=== PATIENT | female | born 1955 | race Two or more races ===

== ENCOUNTER → 2021-04-22 | Outpatient (CLI) | payer MEDICARE ==
[~2021-04-22] MED LIST: ALEN70TA71 PO; ALPR0.254 PO; ATOR40TA59 PO; BACL20TA PO; CHOL10004 PO; DILT240C2 PO; DOCU-109 PO; HYDR12.575 PO; HYDR12.58 PO; MELO15TA6 PO; NORT10CA PO; OXYC5TAB4 PO; POTA-121 PO; SUCR1TAB PO; TUME1CAP PO; VENL37.5 PO
[2021-04-22 08:59] LABS: BASO % 1 % (0-3); EOS # 0.2 x10^3/uL (0.0-0.7); EOS % 2 % (0-3); HEMATOCRIT 35.3 % (36.0-47.0); LYMPH # 2.4 x10^3/uL (1.0-4.8); LYMPH % 31 % (24-48); MEAN CORPUSCULAR HEMOGLOBIN 31 pg (25-35); MEAN CORPUSCULAR HGB CONC 34 g/dL (31-37); MEAN CORPUSCULAR VOLUME 90 fL (79-100); MONO # 0.8 x10^3/uL (0.0-1.1); MONO % 10 % (0-9); NEUT # 4.4 x10^3/uL (1.8-7.7); NEUT % 57 % (31-73); PLATELET COUNT 175 x10^3/uL (140-400); RED BLOOD COUNT 3.91 x10^6/uL (3.50-5.40); WHITE BLOOD COUNT 7.8 x10^3/uL (4.0-11.0)
--- NOTE | 2021-04-22 08:59 | EKG ---
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
[2021-04-22 09:30] LABS: ALBUMIN 3.5 g/dL (3.4-5.0); ALBUMIN/GLOBULIN RATIO 0.9 (1.0-1.7); CREATININE 0.8 mg/dL (0.6-1.0); GFR 71.5; TOTAL BILIRUBIN 0.3 mg/dL (0.2-1.0); TOTAL PROTEIN 7.4 g/dL (6.4-8.2)
[2021-04-22 09:38] LABS: CALCIUM 8.6 mg/dL (8.5-10.1)
[2021-04-22 09:43] LABS: POTASSIUM 2.8 mmol/L (3.5-5.1)
== END ==
LOC: SURGPAT 08:26
PROVIDERS: ATTEND Neurological Surgery
DX: Z01.818 Encounter for other preprocedural examination (principal); M48.02 Spinal stenosis, cervical region; M54.12 Radiculopathy, cervical region; M54.2 Cervicalgia; Z98.1 Arthrodesis status; Z88.5 Allergy status to narcotic agent
CPT/HCPCS: 36415; 80053; 85025; 87641; 93005

== ENCOUNTER 2021-04-25 07:17 | Inpatient (IN) | payer MEDICARE ==
[2021-04-22 09:07] VITALS: BP 148/74
[~2021-04-25] VITALS: Ht 154.9 cm; Wt 61.7 kg
[2021-04-25] VITALS (10 sets, daily range): BP systolic 126–154; BP diastolic 68–81
[~2021-04-25 07:17] MED LIST changes: +0.9 % SODIUM CHLORIDE 20 ML VIAL. IJ ONE; +BUPIVACAINE-EPI 0.5%-1:200000 MPF 30 ML VIAL. ONE; -DOCU-109 PO; +GELATIN SPONGE SIZE 100. ONE; +HYDROmorphone 2 MG/ML VIAL IVP PRN; +IV RINGERS,LACTATED 1000ML 1,000 ML IV SCH; +LIDOCAINE 2% PF 5 ML VIAL. ONE; +MIDAZOLAM HCL/PF 2 MG/2 ML VIAL. ONE; -OXYC5TAB4 PO; +PHENYLEPHRINE 10 MG/ML VIAL. ONE; -POTA-121 PO; +PROCHLORPERAZINE 10 MG/2 ML VIAL. IVP PRN; +PROPOFOL 10 MG/ML (20ML) VIAL. IV ONE; +REMIFENTANIL 2 MG VIAL. IV ONE; +ROCURONIUM 50 MG/5 ML VIAL. ONE; +SUCCINYLCHOLINE 200 MG/10 ML VIAL. ONE; +THROMBIN TOPICAL 20,000 UNIT SPRAY.SYRN KIT TP ONE; +VANCOMYCIN 1 GM in IV NORMAL SALINE 1000ML BAG 1,000 ML IV ONE; +VANCOMYCIN 1GM IVPB FOR OMNI 250 ML IV PRN; +fentaNYL PF VIAL 100 MCG/2 ML VIAL IVP PRN; +fentaNYL PF VIAL 100 MCG/2 ML VIAL ONE
[2021-04-25] MEDS ORDERED: DEXAMETHASONE SOD PHOS 4 MG/ML VIAL ONE (07:21)
[2021-04-25] MEDS ORDERED: ONDANSETRON PF 4 MG/2 ML VIAL. ONE (07:21)
[2021-04-25] MEDS ORDERED: POTA-121 PO (07:57)
[2021-04-25] MEDS ORDERED: PROPOFOL 50 ML IV ONE ×2 (08:12→08:48)
[2021-04-25] MEDS ORDERED: SEVOFLURANE > 120 MINUTES. IH ONE (08:47)
[2021-04-25] MEDS ORDERED: HYDROmorphone 2 MG/ML VIAL ONE (09:07)
--- NOTE | 2021-04-25 09:09 | PREOP HP ---
DATE OF SERVICE: 04/25/2021 PREOPERATIVE HISTORY AND PHYSICAL HISTORY OF PRESENT ILLNESS: The patient is a pleasant 65-year-old who is having difficulty with neck and right shoulder pain. She says her range of motion is restricted. She has undergone 2 cervical surgeries in the past and did well with those. She has intermittent difficulties with neck pain, but a few months ago, the pain significantly worsened. Heating pad and medications can help her. She takes baclofen and Mobic. She had an anterior cervical fusion from C4 to C7. She rates her pain 8/10. Activity increases her pain. She says her hands can become numb and her middle fingers become numb bilaterally frequently. CURRENT MEDICATIONS: Turmeric, meloxicam, baclofen, nortriptyline, potassium, atorvastatin, hydrochlorothiazide, alprazolam, diltiazem, venlafaxine, vitamin D. PAST MEDICAL HISTORY: Arthritis, headaches, neck pain, hypertension, osteoporosis, psychiatric care, GERD. PAST SURGICAL HISTORY: ACDF C5-6, C6-7 in 2001; hysterectomy in 2004; ACDF C4-5 in 2008; cholecystectomy in 2009; esophageal dilation in 2019. FAMILY HISTORY: Alzheimer's, cancer, diabetes, heart disease, hypertension. SOCIAL HISTORY: Retired, , nonsmoker. Drinks alcohol 1-2 times per year. ALLERGIES: KEFLEX, DARVOCET, WELLBUTRIN AND SHRIMP. PHYSICAL EXAMINATION: GENERAL: Alert, pleasant, in no acute distress. HEENT: Head is normocephalic, atraumatic. SKIN: Warm and dry. NECK: Kbqh-tm-[id number] tenderness with palpation of the posterior cervical region, well-healed incision. MUSCULOSKELETAL: Cervical paraspinal muscle bulk is normal, restricted range of motion of the cervical spine, normal range of motion of the upper extremities bilaterally. EXTREMITIES: No clubbing, cyanosis or edema. NEUROLOGIC: Alert and oriented x 3. Normal recent and remote memory. Strength is 5/5 in the upper and lower extremities. Sensory intact to light touch in the upper and lower extremities. Reflexes were present and symmetric in the upper and lower extremities bilaterally. Normal gait. IMAGING: I reviewed her cervical MRI scan. On that study, there are significant degenerative changes throughout the cervical spine along with postoperative changes from her previous fusion at C4 through C7. At C3-4, she has developed significant central canal stenosis with compression of the spinal cord. There is significant bilateral foraminal narrowing present. ASSESSMENT AND PLAN: Based on the cervical stenosis and her symptoms, I feel that she should undergo an anterior cervical diskectomy and fusion at C3-4. I spoke with her about the surgery and the risk. I spoke with her about the expected postoperative course. She would like to go ahead. We will make the arrangements. PRINCE DR: Clari TID: [id number] BETSY
[2021-04-25] MEDS ORDERED: MAG HYDROX/ALUMINUM HYD/SIMETH 30 ML ORAL.SUSP PO PRN (13:15)
[2021-04-25] MEDS ORDERED: MAGNESIUM HYDROXIDE 2,400 MG/30 ML ORAL.SUSP. PO PRN (13:15)
[2021-04-25] MEDS ORDERED: ALPRAZolam 0.25 MG TABLET PO PRN (13:15)
[2021-04-25] MEDS ORDERED: diphenhydrAMINE HCL 25 MG CAPSULE PO PRN (13:15)
[2021-04-25] MEDS: POTASSIUM CL 20MEQ D5-0.45NACL 1,000 ML IV SCH (13:15)
[2021-04-25] MEDS ORDERED: CALCIUM CARBONATE 500 MG TAB.CHEW PO PRN (13:15)
[2021-04-25] MEDS ORDERED: NALOXONE 0.4 MG/ML VIAL. IV PRN (13:15)
[2021-04-25] MEDS ORDERED: 0.9 % SODIUM CHLORIDE 10 ML DISP.SYRIN. IV PRN (13:15)
[2021-04-25] MEDS ORDERED: PROCHLORPERAZINE 10 MG/2 ML VIAL. ONE (13:29)
[2021-04-25] MEDS ORDERED: MORPHINE SULFATE 2 MG/ML INJ. ONE (13:29)
[2021-04-25] MEDS: MORPHINE SULFATE 2 MG/ML INJ. IVP PRN ×2 (13:34→13:50)
[2021-04-25] MEDS: fentaNYL PF VIAL 100 MCG/2 ML VIAL IVP PRN ×4 (13:49→21:13)
--- NOTE | 2021-04-25 14:30 | NUR ---
Arrive to unit by bed from PACU. Sedated. VS stable. Dressing anterior neck d/i with soft collar. IVF's intact and infusing. O2 at 2l per n/c. JESSI's and TRU's on bilaterally. Side rails up x's 2 with bed alarm on. Call light within reach. Cont. monitor.
--- NOTE | 2021-04-25 16:00 | NUR ---
Awaken to use bathroom. Accident in bed. Ambulated to bathroom with assistance x's 1. Voided. Pull ups put on and gown changed. Return back to bed. 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 C/o sore throat. Took a couple of sips water without difficulty. Cont. monitor.
--- NOTE | 2021-04-25 18:00 | NUR ---
and daughter at bedside. several questions answered regarding the care that Vincent will need. questions answered. want ad clerk remain equal and weal. she does have fine motor skills but are weak bilaterally. vincent remains drowsy but will answer questions
--- NOTE | 2021-04-25 18:11 | NUR ---
assisted to up to the bathroom with an assist one; unsteady gait. family remains at bedside. re-educated on the use of the call light and bed alarm
[2021-04-25] MEDS ORDERED: VANCOMYCIN 1 GM in IV NORMAL SALINE 250ML 250 ML IV SCH (20:30)
[2021-04-25] MEDS ORDERED: ATORVASTATIN CALCIUM 40 MG TABLET. PO SCH (21:00)
[2021-04-25] MEDS: DOCUSATE SODIUM 100 MG CAPSULE. PO SCH (21:00)
[2021-04-25] MEDS ORDERED: NORTRIPTYLINE 10 MG CAPSULE PO SCH (21:00)
[2021-04-26] MEDS: fentaNYL PF VIAL 100 MCG/2 ML VIAL IVP PRN ×3 (00:12→12:49)
[2021-04-26] MEDS: POTASSIUM CL 20MEQ D5-0.45NACL 1,000 ML IV SCH (02:35)
[2021-04-26 03:18] VITALS: BP_SYST 135; BP_SYST 155; BP_DIAS 78; BP_DIAS 81
[2021-04-26 07:00] VITALS: BP 153/84
[2021-04-26] MEDS ORDERED: SUCRALFATE 1 GM TABLET. PO SCH (08:00)
[2021-04-26] MEDS: DOCUSATE SODIUM 100 MG CAPSULE. PO SCH (08:08)
[2021-04-26] MEDS ORDERED: oxyCODONE IR 5 MG TABLET PO PRN (08:30)
[2021-04-26] MEDS ORDERED: POTASSIUM CHLORIDE 20 MEQ TABLET.ER. PO SCH (09:00)
[2021-04-26] MEDS ORDERED: BACLOFEN 10 MG TABLET. PO SCH (09:00)
[2021-04-26] MEDS ORDERED: [UNRECOGNIZED DRUG - OTHER] PO SCH (09:00)
[2021-04-26] MEDS ORDERED: hydroCHLOROthiazide 25 MG TABLET PO SCH (09:00)
[2021-04-26] MEDS ORDERED: VENLAFAXINE XR 37.5 MG CAP.ER.24H. PO SCH (09:00)
[2021-04-26] MEDS ORDERED: hydroCHLOROthiazide 12.5 MG CAPSULE PO SCH (09:00)
[2021-04-26 11:00] VITALS: BP 166/71
[2021-04-26] MEDS ORDERED: OXYC5TAB4 PO (12:12)
[2021-04-26] MEDS ORDERED: DOCU-109 PO (12:12)
--- NOTE | 2021-04-26 12:13 | DISCH ---
DISCHARGE INSTRUCTIONS Condition on Discharge Condition on Discharge: Stable Activity After Discharge Activity Instructions for Disc: Activity as tolerated, Avoid exertion, Prog ressive ambulation Other activity instructions: soft collar for comfort Bathing Instructions: No Tub Bath until see Lifting Instructions after Dis: No heavy lifting, No pulling or pushing, Do not lift >10 pounds Exercise Instruction after Dis: Exercise per therapy, Progress as tolerated Driving Instructions after Dis: Do not drive, No driving for 2 weeks Diet after Discharge Diet after Discharge: GI Soft Liquid Texture: Thin Liquid Wound Incision Care Other wound/incision instructi: May shower 48 hours post op. Remove dressing. Replace if desired. Contacting the after DC Call your doctor for: Concerns you may have Follow-Up Follow Up With: Dr Yeung's nurse in two weeks. [phone] Treatment/Equipment after DC Adaptive Equipment Issued: None ERICA YEUNG MD Apr 26, 2021 12:13
--- NOTE | 2021-04-26 13:47 | PDOC ---
PROGRESS NOTES Date of Service DATE: 04/26/21 TIME: 13:42 Subjective Subjective POD #1 S/p ACDF C3-4 Awake alert, sore, pain well controlled some difficulty swallowing but this is a chronic problem, able to take pills and eat Objective Objective Vital Signs Date Time Temp Pulse Resp B/P (MAP) Pulse Ox O2 Delivery O2 Flow Rate FiO2 04/26/21 12:49 95 Room Air 04/26/21 11:00 97.8 84 18 166/71 (102) 2.0 97.8 Intake and Output 04/26/21 06:59 Intake Total 1330 ml Output Total 20 ml Balance 1310 ml Intake Oral 580 ml IV Total 750 ml Output Estimated Blood Loss 20 ml # Voids 6 Physical Exam General: Alert, Oriented X3, Cooperative, Other (voice clear) Neuro: Normal speech, Strength at 5/5 X4 ext Plan Plan of Care ok to dc home f/u 2 weeks Comment Review of Relevant I have reviewed the following items daisy (where applicable) has been applied. Labs Laboratory Tests Test 04/25/21 07:55 Potassium Level 3.3 mmol/L (3.5-5.1) Medications Current Medications Fentanyl Citrate (Fentanyl 2ml Vial) 25 mcg PRN Q5MIN PRN IVP MILD PAIN 1-3; Start 04/25/21 at 06:00; Stop 04/25/21 at 20:00; Status DC Fentanyl Citrate (Fentanyl 2ml Vial) 50 mcg PRN Q5MIN PRN IVP MODERATE PAIN 4-6 Last administered on 04/25/21at 14:03; Start 04/25/21 at 06:00; Stop 04/25/21 at 20:00; Status DC Morphine Sulfate (Morphine Sulfate) 1 mg PRN Q10MIN PRN IVP SEVERE PAIN 7-10 Last administered on 04/25/21at 13:50; Start 04/25/21 at 06:00; Stop 04/25/21 at 20:00; Status DC Ringer's Solution 1,000 ml @ 30 mls/hr Q24H IV Last administered on 04/25/21at 08:04; Start 04/25/21 at 06:00; Stop 04/25/21 at 17:59; Status DC Hydromorphone HCl (Dilaudid) 0.5 mg PRN Q10MIN PRN IVP SEVERE PAIN 7-10, 2nd CHOICE; Start 04/25/21 at 06:00; Stop 04/25/21 at 20:00; Status DC Prochlorperazine Edisylate (Compazine) 5 mg PACU PRN PRN IVP NAUSEA, MRX1 Last administered on 04/25/21at 13:34; Start 04/25/21 at 06:00; Stop 04/25/21 at 20:00; Status DC Vancomycin HCl 1 gm/Sodium Chloride 1,000 ml @ 1,000 mls/hr 1X ONCE IV Last administered on 04/25/21at 09:55; Start 04/25/21 at 06:00; Stop 04/25/21 at 06:59; Status DC Vancomycin HCl 250 ml @ 250 mls/hr 1X PREOP PRN IV PRIOR TO PROCEDURE Last administered on 04/25/21at 08:48; Start 04/25/21 at 06:00; Stop 04/25/21 at 18:00; Status DC Gelatin (Gelfoam Size 100) 1 each STK-MED ONCE .ROUTE Last administered on 04/25/21at 09:55; Start 04/25/21 at 07:07; Stop 04/25/21 at 07:07; Status DC Bupivacaine HCl/ Epinephrine Bitart (Sensorcain-Epi 0.5%-1:039375 Mpf) 30 ml STK-MED ONCE .ROUTE Last administered on 04/25/21at 09:55; Start 04/25/21 at 07:07; Stop 04/25/21 at 07:07; Status DC Thrombin 20,000 unit STK-MED ONCE TP Last administered on 04/25/21at 09:55; Start 04/25/21 at 07:07; Stop 04/25/21 at 07:07; Status DC Propofol (Diprivan) 200 mg STK-MED ONCE IV ; Start 04/25/21 at 05:28; Stop 04/25/21 at 07:28; Status DC Lidocaine HCl (Lidocaine Pf 2% Vial) 5 ml STK-MED ONCE .ROUTE ; Start 04/25/21 at 05:28; Stop 04/25/21 at 07:28; Status DC Fentanyl Citrate (Fentanyl 2ml Vial) 100 mcg STK-MED ONCE .ROUTE ; Start 04/25/21 at 05:28; Stop 04/25/21 at 07:29; Status DC Succinylcholine Chloride (Anectine) 200 mg STK-MED ONCE .ROUTE ; Start 04/25/21 at 05:28; Stop 04/25/21 at 07:29; Status DC Rocuronium Mica (Zemuron) 50 mg STK-MED ONCE .ROUTE ; Start 04/25/21 at 05:29; Stop 04/25/21 at 07:29; Status DC Midazolam HCl (Versed) 2 mg STK-MED ONCE .ROUTE ; Start 04/25/21 at 05:29; Stop 04/25/21 at 07:29; Status DC Remifentanil HCl (Ultiva) 2 mg STK-MED ONCE IV ; Start 04/25/21 at 05:29; Stop 04/25/21 at 07:29; Status DC Sodium Chloride (SODIUM CHLORIDE 20ml) 20 ml STK-MED ONCE IJ ; Start 04/25/21 at 05:29; Stop 04/25/21 at 07:29; Status DC Phenylephrine HCl (Joseph-Synephrine Inj) 10 mg STK-MED ONCE .ROUTE ; Start 04/25/21 at 05:30; Stop 04/25/21 at 07:30; Status DC Ondansetron HCl (Zofran) 4 mg STK-MED ONCE .ROUTE ; Start 04/25/21 at 07:21; Stop 04/25/21 at 09:21; Status DC Dexamethasone Sodium Phosphate (Decadron) 4 mg STK-MED ONCE .ROUTE ; Start 04/25/21 at 07:21; Stop 04/25/21 at 09:21; Status DC Propofol 50 ml @ As Directed STK-MED ONCE IV ; Start 04/25/21 at 08:12; Stop 04/25/21 at 10:12; Status DC Sevoflurane (Ultane) 90 ml STK-MED ONCE IH ; Start 04/25/21 at 08:47; Stop 04/25/21 at 10:48; Status DC Propofol 50 ml @ As Directed STK-MED ONCE IV ; Start 04/25/21 at 08:48; Stop 04/25/21 at 10:48; Status DC Hydromorphone HCl (Dilaudid) 2 mg STK-MED ONCE .ROUTE ; Start 04/25/21 at 09:07; Stop 04/25/21 at 11:07; Status DC Alprazolam (Xanax) 0.25 mg PRN TID PRN PO ANXIETY / AGITATION; Start 04/25/21 at 13:15 Atorvastatin Calcium (Lipitor) 40 mg QHS PO ; Start 04/25/21 at 21:00 Diltiazem HCl (Cardizem 24hr Cd) 240 mg DAILY PO Last administered on 04/26/21at 08:10; Start 04/26/21 at 09:00 Hydrochlorothiazide (Microzide) 12.5 mg DAILY PO ; Start 04/26/21 at 09:00; Status Cancel Nortriptyline HCl (Pamelor) 10 mg HS PO ; Start 04/25/21 at 21:00 Potassium Chloride (Klor-Con) 20 meq DAILY PO Last administered on 04/26/21at 08:09; Start 04/26/21 at 09:00 Sucralfate (Carafate) 2 gm DAILYAC PO ; Start 04/26/21 at 08:00 Venlafaxine HCl (Effexor Xr) 37.5 mg DAILY PO Last administered on 04/26/21at 08:10; Start 04/26/21 at 09:00 Non-Formulary Medication (Alendronate Sodium ) 1 tab WEEKLY PO ; Start 05/02/21 at 09:00; Status UNV Baclofen (Lioresal) 20 mg DAILY PO Last administered on 04/26/21at 08:08; Start 04/26/21 at 09:00 Hydrochlorothiazide (Hydrodiuril) 25 mg DAILY PO Last administered on 04/26/21at 08:08; Start 04/26/21 at 09:00 Non-Formulary Medication (Tumeric/Ging/ [place]/Oreg/Capryl (Candicidal Capsule)) 1 each DAILY PO ; Start 04/26/21 at 09:00; Status UNV Fentanyl Citrate (Fentanyl 2ml Vial) 50 mcg PRN Q2HR PRN IVP MODERATE TO SEVERE PAIN Last administered on 04/26/21at 12:49; Start 04/25/21 at 13:15 Al Hydroxide/Mg Hydroxide (Mylanta Plus Xs) 30 ml PRN Q3HRS PRN PO HEARTBURN / GAS; Start 04/25/21 at 13:15 Calcium Carbonate/ Glycine (Tums) 500 mg PRN Q3HRS PRN PO INDIGESTION; Start 04/25/21 at 13:15 Diphenhydramine HCl (Benadryl) 25 mg PRN Q6HRS PRN PO ITCHING; Start 04/25/21 at 13:15 Naloxone HCl (Narcan) 0.1 mg PRN Q2MIN PRN IV SEE COMMENTS; Start 04/25/21 at 13:15 Sodium Chloride (Normal Saline Flush) 3 ml QSHIFT PRN IV AFTER MEDS AND BLOOD DRAWS; Start 04/25/21 at 13:15 Potassium Chloride/Dextrose/ Sod Cl 1,000 ml @ 75 mls/hr [id number] IV ; Start 04/25/21 at 13:15 Docusate Sodium (Colace) 100 mg BID PO Last administered on 04/26/21at 08:08; Start 04/25/21 at 21:00 Magnesium Hydroxide (Milk Of Magnesia) 2,400 mg PRN Q12HR PRN PO CONSTIPATION; Start 04/25/21 at 13:15 Vancomycin HCl 1 gm/Sodium Chloride 250 ml @ 166.667 mls/hr 1X IV ; Start 04/25/21 at 20:30 Morphine Sulfate (Morphine Sulfate) 2 mg STK-MED ONCE .ROUTE ; Start 04/25/21 at 13:29; Stop 04/25/21 at 13:29; Status DC Prochlorperazine Edisylate (Compazine) 10 mg STK-MED ONCE .ROUTE ; Start 04/25/21 at 13:29; Stop 04/25/21 at 13:29; Status DC Oxycodone HCl (Roxicodone) 5 mg PRN Q6HRS PRN PO MODERATE TO SEVERE PAIN Last administered on 04/26/21at 09:20; Start 04/26/21 at 08:30 Active Scripts Active Oxycodone Hcl Immed.release (Oxycodone Hcl) 5 Mg Tablet 5 Mg PO PRN Q6HRS PRN Colace (Docusate Sodium) 100 Mg Capsule 100 Mg PO BID Reported Klor-Con M20 (Potassium Chloride) 20 Meq Tab.er.prt 20 Meq PO DAILY Nortriptyline Hcl 10 Mg Capsule 10 Mg PO HS Hydrochlorothiazide Tablet (Hydrochlorothiazide) 12.5 Mg Tablet 25 Mg PO DAILY Hydrochlorothiazide Capsule (Hydrochlorothiazide) 12.5 Mg Capsule 12.5 Mg PO DAILY Baclofen 20 Mg Tablet 1 Tab PO DAILY Candicidal Capsule (Tumeric/Ging/Sylvania/Oreg/Capryl) 1 Each Capsule 1 Each PO DAILY Vitamin D3 (Vitamin D) 25 Mcg Tablet 25 Mcg PO DAILY 1,000 UNITS = 25 MCG Alendronate Sodium 70 Mg Tablet 1 Tab PO WEEKLY Atorvastatin Calcium 40 Mg Tablet 1 Tab PO DAILY Sucralfate 1 Gm Tablet 2 Tab PO DAILY Alprazolam 0.25 Mg Tablet 1 Tab PO TID PRN Effexor Xr (Venlafaxine Hcl) 37.5 Mg Cap.er.24h 1 Cap PO DAILY Cardizem Cd (Diltiazem Hcl) 240 Mg Cap.er.24h 1 Cap PO DAILY Vitals/I & O Vital Sign - Last 24 Hours 04/25/21 04/25/21 04/25/21 04/25/21 13:48 13:49 13:50 14:02 Temp 97.2 97.2 97.2 97.2 Pulse 78 92 Resp 15 15 15 15 B/P (MAP) 150/81 147/69 Pulse Ox 94 97 97 97 O2 Delivery Room Air Room Air Nasal Cannula Room Air Nasal Cannula Nasal Cannula O2 Flow Rate 4 10.0 4.0 4.0 04/25/21 04/25/21 04/25/21 04/25/21 14:03 14:30 14:45 14:47 Temp 98.6 98.6 Pulse 87 87 Resp 15 16 16 B/P (MAP) 138/78 (98) 135/77 (96) Pulse Ox 97 92 94 O2 Delivery Room Air Nasal Cannula Nasal Cannula Nasal Cannula O2 Flow Rate 4.0 2.0 2.0 2.0 04/25/21 04/25/21 04/25/21 04/25/21 15:00 15:15 15:45 16:05 Pulse 85 87 83 80 Resp 14 18 16 16 B/P (MAP) 139/74 (95) 146/77 (100) 143/80 (101) 154/79 (104) Pulse Ox 94 94 O2 Delivery Nasal Cannula Nasal Cannula Nasal Cannula Nasal Cannula O2 Flow Rate 2.0 2.0 2.0 2.0 04/25/21 04/25/21 04/25/21 04/25/21 17:00 18:02 18:52 19:30 Temp 98.6 98.6 Pulse 79 79 84 Resp 18 18 18 18 B/P (MAP) 141/80 (100) 135/75 (95) 126/68 (87) Pulse Ox 93 94 O2 Delivery Nasal Cannula Nasal Cannula Nasal Cannula Nasal Cannula O2 Flow Rate 2.0 2.0 2.0 2.0 04/25/21 04/25/21 04/26/21 04/26/21 20:00 23:22 03:18 07:00 Temp 98.3 98.8 97.6 98.3 98.8 97.6 Pulse 90 85 85 Resp 18 18 18 B/P (MAP) 142/81 (101) 155/81 (105) 153/84 (107) Pulse Ox 95 94 94 O2 Delivery Nasal Cannula Nasal Cannula Nasal Cannula Nasal Cannula O2 Flow Rate 2.0 2.0 2.0 2.0 04/26/21 04/26/21 04/26/21 04/26/21 07:45 08:10 09:20 09:50 Pulse 86 Pulse Ox 94 94 O2 Delivery Room Air Room Air Room Air 04/26/21 04/26/21 11:00 12:49 Temp 97.8 97.8 Pulse 84 Resp 18 B/P (MAP) 166/71 (102) Pulse Ox 95 95 O2 Delivery Nasal Cannula Room Air O2 Flow Rate 2.0 Intake and Output 04/25/21 04/25/21 04/26/21 14:59 22:59 06:59 Intake Total 750 ml 100 ml 480 ml Output Total 20 ml Balance 730 ml 100 ml 480 ml Justifications for Admission Other Justification ERICA YEUNG MD Apr 26, 2021 13:47
--- NOTE | 2021-04-26 14:04 | NUR ---
Patient left with family around 1340. Discharge education completed by this nurse, PT, and the doctor prior to dismissal. Paperwork given directly to patient. Oxycodone sent to [facility] per the doctor. Dressing to anterior neck CDI with soft collar in place. Extra dressing given to patient for dressing changes at home/comfort. No concerns noted at discharge.
--- NOTE | 2021-04-26 17:07 | PATHOLOGY ---
[facility] Accession Number: [id number] . 01 Material submitted: . vertebral column - CERVICAL DISC . 01 Clinical history: . CERVICAL STENOSIS, RADICULOPATHY, CERVICALGIA ACDF C3-4 REMOVAL OF HARDWARE C4-5 . 02 Diagnosis: Segments of fibrocartilaginous tissue and bone, cervical disc: - Degenerative changes of fibrocartilaginous tissue. . ([facility]:mm; 04/26/2021) [facility] 04/26/2021 1405 Local . 02 Comment: There is no evidence of an acute inflammatory process or malignancy. . ([facility]:mml; 04/26/2021) . 02 Electronically signed: . Raf Marinelli MD, Pathologist NPI- [id number] . 01 Gross description: . The specimen is received in formalin, labeled "Renan Clemensa, cervical disc". Received are multiple segments of pale damon to pink-damon fibrous tissue admixed with fragments of gritty bone measuring 2.3 x 1.1 x 0.1 cm in aggregate dimensions. The specimen is submitted representatively in cassette A1, following light decalcification. ([facility]; 04/25/2021) [facility] 04/26/2021 1403 Local . 02 Pathologist provided ICD-10: M50.30 . 02 CPT . 385306, [id number] Specimen Comment: A courtesy copy of this report has been sent to [phone], [phone] Specimen Comment: [id number] Specimen Comment: Report sent to / DR BARNES Performed at: [address], [place], [place] [id number] MD Steve Mckeon MD Phone: [phone] Performed at: 02 [facility] [address] [place], [place] [id number] MD Raf Marinelli MD Phone: [phone]
--- NOTE | 2021-04-29 15:48 | OP ---
DATE OF SURGERY: 04/25/2021 PREOPERATIVE DIAGNOSES: Severe cervical spinal stenosis with myelopathy, C3-C4. POSTOPERATIVE DIAGNOSES: Severe cervical spinal stenosis with myelopathy, C3-C4. OPERATIONS PERFORMED: Removal of hardware C4-5; anterior cervical microdiskectomy and fusion, C3-C4; placement of anterior plate and interbody fusion cage, C3-C4. The operation was done with EMG monitoring, SSEP monitoring, NIMS monitoring, fluoroscopy, microscopic dissection. MALE IMPERSONATOR: Dilia Fu NP assisted with the surgery. She assisted with the exposure, the microdiskectomy as well as the closure. OPERATIVE INDICATIONS: The patient is a very pleasant 65-year-old who developed intractable neck and right greater than left arm pain as well as unsteadiness. On imaging studies, she was found to have a previous fusion from C4 through C7 from previous anterior neck surgery; however, at C3-C4 she developed significant central canal stenosis with compression of spinal cord. I recommended an anterior cervical microdiskectomy and fusion. I spoke with her about the surgery and the risks involved. She understood and she wished to go ahead. DESCRIPTION OF PROCEDURE: Following general endotracheal anesthesia, the patient was positioned supine on the operating room table in a neutral position. The anterior cervical region was then prepped and draped in the standard fashion. JESSI hose and AV impulse boots were applied for DVT prophylaxis. A microscope was draped, fluoroscopy was draped and brought into field. Monitoring was established. Vancomycin 1 gram was given one hour prior to surgery. Using fluoroscopic guidance, incision was made from the midline around toward the right in a skin crease in the upper neck region just below the C3-C4 interspace. I dissected down through skin and subcutaneous tissue. I worked along the medial aspect of sternocleidomastoid and carotid artery sheath down the anterior cervical vertebral bodies and placed self-retaining retractors in the longus colli muscles. I brought in the microscope during this time, I placed 14 mm pins in C3 and C4, incised the anterior annulus. I performed diskectomy with pituitary rongeurs and I scraped with cartilaginous endplates posteriorly, I drilled the posterior spurring and removed the large subligamentous disk herniation after I had opened the ligament and the annulus. As I worked, the region became very well decompressed, the foramina were opened bilaterally. After removing as much disk as I felt I safely could had a spinal cord well decompressed. I irrigated with antibiotic solution. I scraped and placed interbody fusion cage using the Neumitra spine system. This was gently tapped into position, I placed a 14 mm plate and placed 14 mm screws. The upper left screw I felt I did not have good purchase and I replaced that with a rescue screw of the same length and I developed good purchase. I then irrigated with antibiotic solution. I assured myself of perfect positioning of the plate with lateral fluoroscopic images, I removed the retractor. Hemostasis was excellent. I irrigated copiously and then closed the wound in layers with absorbable suture and the skin was closed with a 4-0 subcuticular stitch. I felt the surgery went very well. FOREST/LEONILA DR: Lon TID: [id number]
[2021-05-02] MEDS ORDERED: NON FORMULARY ITEM (Alendronate Sodium 1 TAB) PO SCH (09:00)
== END 2021-04-26 14:00 | disposition home or self-care (01) | DRG 472 ==
LOC: OPSVCIP 07:17 → 4 NORTH 15:44
PROVIDERS: ADMIT Neurological Surgery; ATTEND Neurological Surgery
PROC: 0RB30ZZ Excision of Cervical Vertebral Disc, Open Approach (ICD-10-PCS; 2021-04-25)
PROC: 00NW0ZZ Release Cervical Spinal Cord, Open Approach (ICD-10-PCS; 2021-04-25)
PROC: 4A11X4G Monitoring of Peripheral Nervous Electrical Activity, Intraoperative, External Approach (ICD-10-PCS; 2021-04-25)
PROC: 0RG10A0 Fusion of Cervical Vertebral Joint with Interbody Fusion Device, Anterior Approach, Anterior Column, Open Approach (ICD-10-PCS; principal; 2021-04-25 08:30)
DX: M48.02 Spinal stenosis, cervical region (principal); G99.2 Myelopathy in diseases classified elsewhere; I10 Essential (primary) hypertension; M81.0 Age-related osteoporosis without current pathological fracture; R13.10 Dysphagia, unspecified; Z82.0 Family history of epilepsy and other diseases of the nervous system; Z82.49 Family history of ischemic heart disease and other diseases of the circulatory system; Z83.3 Family history of diabetes mellitus; Z90.49 Acquired absence of other specified parts of digestive tract; Z90.710 Acquired absence of both cervix and uterus; Z98.1 Arthrodesis status; K21.9 Gastro-esophageal reflux disease without esophagitis; M19.90 Unspecified osteoarthritis, unspecified site; Z88.8 Allergy status to other drugs, medicaments and biological substances
CPT/HCPCS: 36415; 76000; 84132; A4222; A4364; A4930; A6254; A6258; C1713; C1821; J0330; J0780; J1100; J1170; J2250; J2270; J2370; J2405; J2704; J3010; J3370; J7030; J7120; 97116-GP; 97530-GP; G0378